=== PATIENT | male | born 1965 | race Caucasian/White ===

== ENCOUNTER → 2021-08-05 11:58 | Outpatient (CLI) | payer OTHER, SELFPAY ==
--- NOTE | ~2021-08-05 | CT_ITS ---
EXAMINATION: CT abdomen pelvis wo con DATE: 08/05/2021 12:12 INDICATION: Left flank pain TECHNIQUE: Computed tomography (CT) of the abdomen and pelvis was performed without intravenous contr ast. The dose-length product (DLP) was 833.32 mGy-cm. Automated exposure control and iterative recons truction technique were employed. COMPARISON: None FINDINGS: Minimal dependent atelectasis is present in the lung bases. The heart size is normal. Suben docardial fat deposition in the interventricular septum suggests prior myocardial infarction. The jose er, pancreas, gallbladder, and adrenal glands are normal. A subtle 4 mm hypoattenuating lesion of the spleen likely represents a cyst or hemangioma. There is a 6 mm nonobstructing stone of the left kidn ey. There is a 5.3 cm cyst of the right kidney. No pathologically enlarged abdominal or pelvic lymph nodes are identified. There is no free intraperitoneal gas or evidence of bowel obstruction. Colonic diverticulosis is noted. There is diverticular inflammation of the mid descending colon. There is no evidence of abscess or perforation. There is moderate lumbar spondylosis. A fat-containing umbilical hernia is noted. IMPRESSION: 1. Uncomplicated diverticulitis of the mid descending colon. 2. Nonobstructing left nephrolithiasis. Reviewed, dictated and finalized at location B.
== END ==
PROVIDERS: PCP Internal Medicine; Visit Provider Internal Medicine
DX: N20.0 Calculus of kidney (principal); K57.32 Diverticulitis of large intestine without perforation or abscess without bleeding
CPT/HCPCS: 74176

== ENCOUNTER 2023-01-08 07:23 | Emergency (ER) | payer OTHER, SELFPAY ==
[2023-01-08] VITALS (9 sets, daily range): BP systolic 112–145; BP diastolic 75–85; PULSE 90–96; RESP 10–18; TEMP 35.7–37.3; O2SAT 96–100
--- NOTE | ~2023-01-08 | XR_ITS ---
EXAMINATION: XR retrograde pyelo w/stent LT DATE: 01/08/2023 16:27 INDICATION: Left ureteral stone. TECHNIQUE: 18 intraoperative fluoroscopic views of the abdomen and pelvis were obtained. I was not pr esent. Fluoroscopy exposure time was 92 seconds. COMPARISON: CT abdomen and pelvis 01/08/2023 FINDINGS: The left-sided retrograde pyelogram demonstrates venous intravasation of contrast in the le ft kidney. There is left hydronephrosis. The final images demonstrate a left internal ureteral stent in expected position. IMPRESSION: 1. Left internal ureteral stent in expected position. Reviewed, dictated and finalized at location A.
--- NOTE | ~2023-01-08 | CT_ITS ---
EXAMINATION: CT abdomen pelvis wo con DATE: 01/08/2023 11:05 INDICATION: Renal stone with left flank pain. TECHNIQUE: Computed tomography (CT) of the abdomen and pelvis was performed without intravenous contr ast. Automated exposure control and iterative reconstruction technique were employed. The dose-length product was 523.88 mGy-cm. COMPARISON: 08/05/2021 FINDINGS: Mild dependent atelectasis in the posterolateral left lower lobe. Heart size is normal. No pericardia l or pleural effusion. Liver, gallbladder, spleen, pancreas and bilateral adrenal glands are normal. 4.5 cm exophytic right renal cyst. Bilateral nephrolithiasis with 1-2 mm nonobstructing stone at a lo wer pole calyx of the right kidney. 6 x 6 x 3 mm obstructing stone at the left ureteropelvic junction with mild hydronephrosis and prominent left perinephric stranding. Marked diverticulosis with descen ding and sigmoid colon predominance and without adjacent from percent to suggest acute diverticulitis . Small bowel and appendix are normal. Bladder is normal. Bilateral small fat-containing inguinal her nias. No pathologically enlarged abdominal or pelvic lymphadenopathy. Mild thoracolumbar dextrocurvat ure with mild spondylosis. IMPRESSION: 1. Bilateral nephrolithiasis with obstructing 6 x 6 x 3 mm stone at the left ureteropelvic junction w ith mild left hydroureteronephrosis. 2. Extensive diverticulosis. 3. Small bilateral fat-containing inguinal hernias. Reviewed, dictated and finalized at location A. IMPRESSION: 1. Bilateral nephrolithiasis with obstructing 6 x 6 x 3 mm stone at the left ur eteropelvic junction with mild left hydroureteronephrosis. 2. Extensive diverticulosis. 3. Small bilateral fat-containing inguinal hernias.
--- NOTE | ~2023-01-08 | XR_ITS ---
XR abdomen/kub 1V DATE: 01/08/2023 16:43 INDICATION: Left ureteropelvic junction obstructing calculus, bilateral nephrolithiasis. Mild left hy droureteronephrosis TECHNIQUE: Postoperative supine AP portable views on 01/08/2023 1638 and 1639 hours COMPARISON: 01/08/2023 left retrograde pyelogram FINDINGS: A left internal urinary stent is noted, with the distal pigtail overlying the left lateral aspect of the urinary bladder, the proximal pigtail overlying the mid to upper left kidney. IMPRESSION: Left internal urinary stent placement Reviewed, dictated and finalized at Location A. Reviewed, dictated and finalized at location A.
--- NOTE | 2023-01-08 08:06 | ED.GENADULT ---
HPI - General Adult General Chief complaint: Abdominal Pain Stated complaint: left flank pain Time Seen by Provider: 01/08/23 07:29 History of Present Illness HPI narrative: 57-year-old male with prior history of kidney stones presenting the emergency department for evaluation of left-sided flank pain that started this morning approximately 5 AM. Patient is unaware of any associate hematuria. Patient states the pain starts in his flank and radiates around to his left lower quadrant. Patient does have associated nausea and vomiting. Upon arrival to the emergency department patient does look distressed secondary to his flank pain. Patient denies any associated chest pain or shortness of breath or associated fevers Related Data Home Medications Medication Instructions Recorded Confirmed aspirin 81 mg capsule 81 mg PO DAILY 01/08/23 01/08/23 loratadine 10 mg tablet (Claritin) 10 mg PO DAILY 01/08/23 01/08/23 sennosides 25 mg tablet 25 mg PO DAILY PRN Constipation 01/08/23 01/08/23 vitamin B complex 1 tablet PO DAILY 01/08/23 01/08/23 Allergies Allergy/AdvReac Type Severity Reaction Status Date / Time prochlorperazine AdvReac Agitated Verified 01/08/23 07:34 [From Compazine] Review of Systems Review of Systems: All systems reviewed & are unremarkable except as noted in HPI and below Exam Narrative: APPEARANCE: Patient distress secondary to nausea vomiting and flank pain HEAD: normocephalic, atraumatic. EYES: PERRLA/EOMI, conjunctivae clear. NOSE: Normal no drainage NECK: Supple. No adenopathy, no masses. RESPIRATORY: Airway patent, respirations nonlabored. Clear to auscultation bilaterally, no rales, rhonchi, wheezing. CARDIOVASCULAR: Regular rate and rhythm without murmurs rubs or gallops. ABDOMINAL: Left CVA tenderness to palpation MUSCULOSKELETAL: Moves all extremities. Strength/ROM intact, No edema, No calf tenderness. NEURO: Alert. Cranial nerves II through XII intact. Grossly intact SKIN: Warm, dry. Normal Color Course Course Emergency Course: 57-year-old male presenting with left flank pain. UA is pending at this time. Patient was ordered pain medications for nausea and for pain control. IV Dilaudid, IV saline and IV Zofran were ordered. Patient and family were updated on the plan for symptomatic treatment and work-up. Patient is afebrile with no leukocytosis. Patient's CMP is within normal limits including a normal creatinine. UA does show evidence of hematuria but no evidence of underlying infection. 12:59 PM I discussed case with Dr. Thomas and patient will be taken for a potential stent. Patient and family were updated with the plan. At this time patient states his pain is controlled and he is resting comfortably. Vital Signs Vital signs: Vital Signs Pulse Rate 90 01/08/23 07:28 Respiratory Rate 17 01/08/23 07:28 Blood Pressure 145/83 H 01/08/23 07:28 Pulse Oximetry 100 01/08/23 07:28 Oxygen Delivery Room Air 01/08/23 07:28 Temperature 99.2 F 01/08/23 16:30 Pulse Rate 93 01/08/23 17:50 Respiratory Rate 14 01/08/23 17:50 Blood Pressure 132/77 01/08/23 17:50 Pulse Oximetry 100 01/08/23 17:14 Oxygen Delivery Room Air 01/08/23 17:14 Oxygen Flow Rate 8 01/08/23 17:00 Medical Decision Making Vital Signs Vital Signs: Vital Signs Pulse Rate 90 01/08/23 07:28 Respiratory Rate 17 01/08/23 07:28 Blood Pressure 145/83 H 01/08/23 07:28 Pulse Oximetry 100 01/08/23 07:28 Oxygen Delivery Room Air 01/08/23 07:28 Temperature 99.2 F 01/08/23 16:30 Pulse Rate 93 01/08/23 17:50 Respiratory Rate 14 01/08/23 17:50 Blood Pressure 132/77 01/08/23 17:50 Pulse Oximetry 100 01/08/23 17:14 Oxygen Delivery Room Air 01/08/23 17:14 Oxygen Flow Rate 8 01/08/23 17:00 Lab Data Lab results reviewed: Yes I reviewed the patient's lab results. 01/08/23 07:41 Labs: Lab Results 01/08/23 01/08/23 01/08/23 Ran
[2023-01-08 08:11] LABS: Basophils Absolute Auto 0.1 K/mm3 (0.0-0.1); Basophils Percent Auto 0.7 % (0.2-1.2); Eosinophils Absolute Auto 0.1 K/mm3 (0-0.3); Eosinophils Percent Auto 1.4 % (0-4.4); Hematocrit 46.5 % (42.0-52.0); Immature Granulocyte Absolute 0.03 K/mm3 (0.00-0.031); Immature Granulocyte Percent A 0.3 % (0-0.5); Lymphocytes Absolute Auto 1.62 K/mm3 (0.9-3.2); Lymphocytes Percent Auto 18.4 % (18.3-44.2); Mean Corpuscular HGB Conc 34.4 g/dl (32-36); Mean Corpuscular Hemoglobin 29.3 pg (26-34); Mean Platelet Volume 10.1 fl (7.4-10.4); Monocytes Absolute Auto 0.8 K/mm3 (0.1-0.6); Monocytes Percent Auto 9.1 % (2.6-8.5); Neutrophils Absolute Auto 6.2 K/mm3 (1.3-6.7); Neutrophils Percent Auto 70.1 % (45.5-73.1); Platelet Count Result 188 k/mm3 (150-375); Red Blood Count 5.47 M/mm3 (4.6-6.20); Red Cell Distribution Width 13.2 % (11.5-14.5); White Blood Count 8.8 K/mm3 (4.5-10.0)
[2023-01-08] MEDS: HYDROmorphone HCL INJ (*CRX) 1 MG/ML SYR IV PUSH ×2 (08:16→10:12)
[2023-01-08] MEDS: ONDANSETRON INJ 4 MG/2 ML VIAL IV PUSH (08:16)
[2023-01-08 08:18] LABS: Alanine Aminotransferase 42 U/L (6-50); Albumin Level 4.6 g/dL (3.5-5.1); Alkaline Phosphatase 57 U/L (38-126); Anion Gap 11 mmol/L (8-16); Aspartate Amino Transferase 47 U/L (17-59); Bilirubin,Total 0.9 mg/dL (0.2-1.3); Blood Urea Nitrogen 20 mg/dL (9-20); Calcium 9.1 mg/dL (8.4-10.2); Carbon Dioxide 23 mmol/L (22-30); Chloride 104 mmol/L (98-107); Estimated CRCL calculation 66 ml/min; Estimated Glomerular Filt Rate > 60; Glucose 149 mg/dL (65-110); Potassium 3.3 mmol/L (3.4-5.0); Sodium 138 mmol/L (137-145)
[2023-01-08] MEDS: SODIUM CHLORIDE 0.9% IV 1,000 ML 999 ML IV CONT (09:02)
[2023-01-08 10:30] LABS: Appearance Urine Cloudy (Clear); Bacteria Urine None Seen /hpf; Bilirubin Urine Negative (Negative); Blood Urine 3+ (Negative); Color Urine Dark Yellow (Yellow); Glucose Urine UA Negative (Negative); Ketones Urine 1+ mg/dL (Negative); Leukocyte Esterase Ur Trace LEU/UL (Negative); Nitrate Urine Negative (Negative); Non Pathogenic Casts 0-2; Protein Urine 1+ mg/dL (Negative); RBC Urine >100 /hpf (0-2); Specific Grav Ur 1.028 (1.001-1.035); Squamous Epithelial Cell Urine None seen /hpf (Few); WBC Urine 0-5 /hpf; pH Urine 5.5 (5.0-9.0)
[2023-01-08 10:42] LABS: Add Urine Microscopic? YES
--- NOTE | 2023-01-08 13:51 | P.HP_ITS ---
History of Present Illness History of Present Illness Consent: Risks, benefits, and alternatives have been discussed and questions answered. Patient agrees to proceed with procedure. Chief complaint: left flank pain Narrative: Omer Ely is a 57 year old male was seen in our practice several years ago after he had spontaneously passed ureteral calculus. He has not seen since until this afternoon when he presented to the ED with acute severe left flank p ain. Associated with nausea vomiting but he denied fevers chills or gross hematuria. CT imaging demonstrates an obstructing 6 mm left proximal ureteral stone. Additionally, he has a very small nonobstructing right renal calculus. Pain was difficult control emergency department. After discussion of options we elected to place a left ureteral stent today as an outpatient. Thereafter we can plan left ESWL. He is aware that definitive care will involve additional procedures with ESWL. He is aware the risk of stent placement including, but not limited to, postoperative stent irritation within ureteral voiding pattern, hematuria, urinary tract infection. Review of Systems Cardiovascular: Cardiovascular: Denies chest pain, Denies lightheadedness, Denies palpitations and Denies dyspnea Respiratory: Respiratory: Denies dyspnea Gastrointestinal: Gastrointestinal: Denies diarrhea, Denies nausea and Denies vomiting Genitourinary: Genitourinary: Denies hematuria and Denies dysuria Endocrine: Endocrine: Denies palpitations Meds Home Medications and Allergies Allergies Allergy/AdvReac Type Severity Reaction Status Date / Time prochlorperazine AdvReac Agitated Verified 01/08/23 07:34 [From Compazine] Vital Signs Vital Signs - 24 hr 01/08/23 07:28 01/08/23 07:37 Temperature 96.3 F L Pulse Rate 90 Respiratory Rate 17 Blood Pressure 145/83 H Pulse Oximetry 100 Oxygen Delivery Room Air Exam Const: General: no acute distress Resp: Effort & Inspection: normal respiratory effort GI: Inspection: non-distended GI Palp: No abdominal tenderness and No Guarding due to palpation present (GI) Auscultation: normal bowel sounds Assessment and Plan Assessment and plan (1) Calculi, ureter: Code(s): N20.1 - Calculus of ureter Status: Acute Assessment and Plan: 1. Cystoscopy, left ureteral stent placement today 2. Left ESWL in the future.
--- NOTE | 2023-01-08 13:55 | WPDHPUPDATE1 ---
History and Physical Update Update Date/Time: 01/08/23 13:55 History and Physical has been reviewed, including an updated exam of the patient. There are NO changes in the patient's condition. Risks, benefits, and alternatives have been discussed and questions answered. Patient agrees to proceed with procedure.
[2023-01-08] MEDS: LACTATED RINGERS 1,000 ML 30 ML IV CONT (15:00)
--- NOTE | 2023-01-08 15:06 | WPDANESEPPF ---
Anes - Initial Pre Proc Eval Procedure: Operation Date: 01/08/23 16:00 Proposed Procedures p Cystoscopy, Left Stent Placement - Aurelio Thomas MD Date/Time: 01/08/23 15:06 Pre Op Diagnosis: left flank pain Patient Data Age: 57 Gender: M Height: 1.7 m Weight: 79.3 kg Last Vital Signs Temp 35.7 C L 01/08/23 07:37 Pulse 90 01/08/23 07:28 Resp 17 01/08/23 07:28 BP 145/83 H 01/08/23 07:28 Pulse Ox 100 01/08/23 07:28 O2 Del Method Room Air 01/08/23 07:28 Allergies Allergy/AdvReac Type Severity Reaction Status Date / Time prochlorperazine AdvReac Agitated Verified 01/08/23 07:34 [From Compazine] Home Medications Medication Instructions Recorded Confirmed Type aspirin 81 mg capsule 81 mg PO DAILY 01/08/23 01/08/23 History loratadine 10 mg tablet (Claritin) 10 mg PO DAILY 01/08/23 01/08/23 History sennosides 25 mg tablet 25 mg PO DAILY PRN Constipation 01/08/23 01/08/23 History vitamin B complex 1 tablet PO DAILY 01/08/23 01/08/23 History Laboratory Tests 01/08/23 01/08/23 01/08/23 07:41 07:41 10:14 WBC 8.8 K/mm3 K/mm3 (4.5-10.0) RBC 5.47 M/mm3 M/mm3 (4.6-6.20) Hgb 16.0 g/dL g/dL (14.0-18.0) Hct 46.5 % % (42.0-52.0) MCV 85.0 fl fl (80-100) MCH 29.3 pg pg (26-34) MCHC 34.4 g/dl g/dl (32-36) RDW 13.2 % % (11.5-14.5) Plt Count 188 k/mm3 k/mm3 (150-375) MPV 10.1 fl fl (7.4-10.4) Immature Gran % (Auto) 0.3 % % (0-0.5) Neut % (Auto) 70.1 % % (45.5-73.1) Lymph % (Auto) 18.4 % % (18.3-44.2) Johnson % (Auto) 9.1 % H % (2.6-8.5) Eos % (Auto) 1.4 % % (0-4.4) Baso % (Auto) 0.7 % % (0.2-1.2) Lymph # (Auto) 1.62 K/mm3 K/mm3 (0.9-3.2) Johnson # (Auto) 0.8 K/mm3 H K/mm3 (0.1-0.6) Eos # (Auto) 0.1 K/mm3 K/mm3 (0-0.3) Baso # (Auto) 0.1 K/mm3 K/mm3 (0.0-0.1) Abs Immat Gran (auto) 0.03 K/mm3 K/mm3 (0.00-0.031) Absolute Neuts (auto) 6.2 K/mm3 K/mm3 (1.3-6.7) Absolute Nucleated RBC 0.0 K/mm3 K/mm3 (0.0-0.012) Nucleated RBC % 0.0 % % (0.0-0.2) Sodium 138 mmol/L mmol/L (137-145) Potassium 3.3 mmol/L L mmol/L (3.4-5.0) Chloride 104 mmol/L mmol/L (98-107) Carbon Dioxide 23 mmol/L mmol/L (22-30) Anion Gap 11 mmol/L mmol/L (8-16) BUN 20 mg/dL mg/dL (9-20) Creatinine 1.00 mg/dL mg/dL (0.7-1.3) Estim Creat Clear Calc 66 ml/min ml/min Estimated GFR > 60 (59 - ) Glucose 149 mg/dL H mg/dL (65-110) Calcium 9.1 mg/dL mg/dL (8.4-10.2) Total Bilirubin 0.9 mg/dL mg/dL (0.2-1.3) AST 47 U/L U/L (17-59) ALT 42 U/L U/L (6-50) Alkaline Phosphatase 57 U/L U/L (38-126) Total Protein 8.0 g/dL g/dL (6.3-8.2) Albumin 4.6 g/dL g/dL (3.5-5.1) Urine Color Dark yellow (Yellow) Urine Appearance Cloudy H (Clear) Urine pH 5.5 (5.0-9.0) Ur Specific [place] 1.028 (1.001-1.035) Urine Protein 1+ mg/dL H mg/dL (Negative) Urine Glucose (UA) Negative mg/dL mg/dL (Negative) Urine Ketones 1+ mg/dL H mg/dL (Negative) Ur Blood (Man) 3+ H (Negative) Urine Nitrate Negative (Negative) Urine Bilirubin Negative (Negative) Urine Urobilinogen 1.0 mg/dL mg/dL (<2.0) Leukocyte Esterase Rfl Trace ELIGIO/UL H ELIGIO/UL (Negative) Urine RBC >100 /hpf H /hpf (0-2) Urine WBC 0-5 /hpf /hpf Ur Squamous Epith Cells None seen /hpf /hpf (Few) Urine Bacteria None seen /hpf /hpf Urine Casts 0-2 Patient hx anesthesia problems: none Family hx anesthesia problems: none Results Review
--- NOTE | 2023-01-08 16:33 | W.PM.PROC2 ---
Procedure Note - Detailed Date of Procedure 01/08/23 Pre-op Diagnosis Left ureteral stone Post-op Diagnosis Same Procedure Performed Cystoscopy, left retrograde pyelography, left ureteral stent placement Surgeon Aurelio Thomas MD Anesthesia MAC Description of Procedure patient is brought to the operative suite was prepped draped in routine sterile fashion while in dorsal lithotomy position. Cystoscopy is undertaken with a 19 F rigid cystoscope. There was no urethral strictures and minimal lateral lobe hyperplasia of the prostate. Bladder mucosa was without hyperemia. There was no intravesical foreign body or neoplasm. He has a single orthotopic ureteral orifice bilaterally. There was a small left periureteral diverticulum. 0.035 in glidewire was advanced into his left renal pelvis. His stone is visible under fluoroscopy suggesting that it is calcified. I did pass a angiographic catheter over the wire and performed a left retrograde pyelogram to ensure appropriate positioning of the stent. A 4.8 F variable length stent was positioned with the proximal coil in the renal pelvis and distal coil in the bladder. Scopes and wires removed the patient was taken recovery room good condition. Drains Yes Packing No Pathology Yes Complications No immediate complications Condition Stable
[2023-01-08] MEDS: KETOROLAC 30 MG/ML VIAL (*BKC) IV PUSH (16:37)
== END 2023-01-08 18:23 | disposition home or self-care (01) ==
PROVIDERS: Urology; Emergency Provider Emergency Medicine; PCP Internal Medicine
PROC: (CPT 52352; principal; 2023-01-08 16:00)
DX: N13.2 Hydronephrosis with renal and ureteral calculous obstruction (principal)
CPT/HCPCS: 36415; 74018; 74176; 74420; 80053; 81001; 85025; 96361; 96374; 96375; 96376; 99284; C1758; C1769; C2617; J1170; J1885; J2250; J2405; J2704; J7030; J7120

== ENCOUNTER 2023-01-11 10:50 | Outpatient (CLI) | payer OTHER, SELFPAY ==
[2023-01-11 12:20] LABS: INR 1.1; Partial Thromboplastin Time 26.6 SECONDS (22.3-36.8); Prothrombin Time 13.8 Seconds (11.1-14.7)
== END 2023-01-11 10:51 | disposition home or self-care (01) ==
LOC: ANHSURGERY 10:55
PROVIDERS: PCP Internal Medicine; Visit Provider Urology
DX: N20.1 Calculus of ureter (principal); Z01.818 Encounter for other preprocedural examination
CPT/HCPCS: 36415; 85610; 85730; 87086

== ENCOUNTER 2023-01-15 01:49 | Day surgery (SDC) | payer OTHER, SELFPAY ==
[2023-01-11 09:31] VITALS: BMI 27.3
--- NOTE | 2023-01-11 09:35 | PC.NURSE ---
Report to the Outpatient Waiting Room, entrance under the green pavilion located off [facility], at time 6:00 on date 01/15/23. Planned Procedure Time: 7:30. Time changes happen often and if your time is changed the preop area will call you the afternoon before. - You and your visitor will be asked to self-screen and do not enter if you have any COVID symptoms. - A mask is optional within the hospital at this time. Patients may have clear liquids (water, carbonated beverages, clear teas, apple juice) until 3 hours prior to surgery with a maximum of 20 ounces. - No food from midnight until time of surgery Take the following medications with a SIP of water the morning of surgery: PAIN PILL IF NEEDED DO NOT STOP ANY OF YOUR OTHER PRESCRIPTION MEDICATIONS PRIOR TO SURGERY?EXCEPT THE FOLLOWING Medications to discontinue per physician: VITAMINS Date to take last dose: 01/11/23 PT ALREADY HOLDING ASPIRIN Please no make-up, nail burkinan, hairspray, perfume, deodorant, or body powder the day of surgery. No jewelry (including any body piercings) or valuables the day of surgery, leave them at home. Please take a shower or bath the night before, or the morning of, surgery with an antibacterial soap. Wear comfortable, loose fitting clothing. - Jewelry must be removed prior to entering the operating room. Rings and piercings that are not removed may be cut off. - The hospital will not accept responsibility for valuables. - Please leave all valuables, including medications, at home the day of surgery. If you are going home after surgery, a licensed motorcoach driver must drive you home. - NO public transportation without another adult if you receive anesthesia. - We recommend that an adult stay with you for 24 hours following discharge. - We also recommend that you do not drive, make important decision, drink alcoholic beverages, or take any drugs that were not prescribed by your health care provider for at least 24 hours after your discharge time. Follow any additional instructions given to you from your surgeon. If you or anyone in your household have experienced Covid symptoms in the past week, please notify your surgeon or the nurse liaison at the phone number below for possible testing. Telephone instructions given to PT - TAYO PUENTE and asked if any additional questions and then verbalized understanding. Patient advised to call surgeon office or pre surgery nurse liaison [phone] if any additional questions.
--- NOTE | 2023-01-14 14:34 | P.PNAN_ITS ---
Anes - Initial Pre Proc Eval Procedure: Operation Date: 01/15/23 07:30 Proposed Procedures p Left Extracorporeal Shock Wave Lithotripsy - Alejo Joseph MD s Cystoscopy, Left Stent Removal - Alejo Joseph MD Date/Time: 01/14/23 14:34 Surgeon: Alejo Joseph MD Pre Op Diagnosis: Left ureteral stone Patient Data Age: 57 Gender: M Height: 1.7 m Weight: 79.4 kg Allergies Allergy/AdvReac Type Severity Reaction Status Date / Time prochlorperazine AdvReac Agitated Verified 01/15/23 06:52 [From Compazine] Home Medications Medication Instructions Recorded Confirmed Type aspirin 81 mg capsule 81 mg PO DAILY 01/08/23 01/11/23 History hydrocodone 5 mg-acetaminophen 325 1 - 2 tablet PO Q6H PRN pain #30 01/08/23 01/11/23 Rx mg tablet tabs loratadine 10 mg tablet (Claritin) 10 mg PO DAILY 01/08/23 01/11/23 History sennosides 25 mg tablet 25 mg PO DAILY PRN Constipation 01/08/23 01/11/23 History vitamin B complex 1 tablet PO DAILY 01/08/23 01/11/23 History Patient hx anesthesia problems: none Family hx anesthesia problems: none Results Review: All pre-operative results and documents have been reviewed as part of the pre- operative evaluation. [facility] Social History Social History Smoking status: Never smoker Alcohol intake: never Substance use: never Substance use type: does not use Living arrangements: with family Spiritual care concerns: No Anes - Eval Final PreProcedure Day of Procedure 01/14/23 14:34 Patient weight: overweight Heart: regular rate and rhythm Lungs: clear to auscultation Airway: Mallampati scale class II Neurological: alert and oriented Last oral intake: >/= 8 hours ASA classification: II Emergent: no Anesthetic plan: proceed Anesthesia type and monitoring: general LMA and standard monitoring Results Review: All pre-operative results and documents have been reviewed as part of the pre- operative evaluation. Informed Consent: The patient's anesthetic plan and its attendant risks and benefits were discussed with the patient/family/POA. Questions were solicited and answers provided to the satisfaction of the patient/family/POA.
[2023-01-15] VITALS (7 sets, daily range): BP systolic 116–157; BP diastolic 73–92; PULSE 66–85; RESP 14–20; TEMP 36.2–36.9; O2SAT 96–100
--- NOTE | ~2023-01-15 | XR_ITS ---
Supine and upright views of the abdomen Clinical history: Lithotripsy COMPARISON: 01/08/2023 Findings: Bowel gas pattern is nonspecific. No evidence for obstruction or free air. Left ureteral st ent remains in place. 8 mm stone present at the proximal to mid left ureter along the course of the s tent. Osseous structures are intact. Impression: 8 mm stone at the proximal to mid left ureter along the course of the left ureteral stent. Reviewed, dictated and finalized at location M. Impression: 8 mm stone at the proximal to mid left ureter along the course of the left uret eral stent.
[2023-01-15] MEDS: LACTATED RINGERS 1,000 ML 30 ML IV CONT (06:52)
--- NOTE | 2023-01-15 07:11 | WPDHPUPDATE1 ---
History and Physical Update Update Date/Time: 01/15/23 07:11 History and Physical has been reviewed, including an updated exam of the patient. There are NO changes in the patient's condition. Risks, benefits, and alternatives have been discussed and questions answered. Patient agrees to proceed with procedure. Proceed with eswl of left ureteral calculus
[2023-01-15] MEDS: ceFAZolin 2 GM/D5W 50 ML 2 GM/50 ML BAG IVPB (07:27)
--- NOTE | 2023-01-15 07:58 | W.PM.PROC2 ---
Procedure Note - Detailed Date of Procedure 01/15/23 Pre-op Diagnosis Left ureteral stone Post-op Diagnosis Same Procedure Performed Lithotripsy of left ureteral calculus Surgeon Alejo Joseph MD Anesthesia General Description of Procedure Patient is taken to the operative suite correctly identified. Once anesthesia was obtained the stone was localized in both planes. Three thousand shocks were given the stone. There appeared to be fairly good fragmentation. Given the size of the stone we decided to retain the stent and re-evaluate next week. Patient was taken recovery stable condition. Please send a copy of op note to my office. Drains Yes Packing No Pathology None sent Complications No immediate complications Condition Stable Disposition PACU
== END 2023-01-15 09:50 | disposition home or self-care (01) ==
PROVIDERS: PCP Internal Medicine; Visit Provider Urology
PROC: (CPT 50590; principal; 2023-01-15 07:30)
DX: N20.1 Calculus of ureter (principal)
CPT/HCPCS: 50590; 36415; 74018; 85610; 85730; 87086; J0690; J1100; J2250; J2405; J2704; J3010; J7030; J7120

== ENCOUNTER 2023-01-21 09:37 | Outpatient (CLI) | payer OTHER, SELFPAY ==
--- NOTE | ~2023-01-21 | XR_ITS ---
EXAMINATION: XR abdomen/kub 1V INDICATION: Left-sided kidney stone TECHNIQUE: Supine views of the abdomen were obtained on 2 radiographs. COMPARISON: 01/15/2023 FINDINGS: A right internal ureteral stent is in expected position. There is a 3 mm stone adjacent to the proximal aspect of the stent at the level of the left L4 transverse process which previously miriam ured 8 mm. No additional urolithiasis is identified. Phleboliths are noted in the left pelvis. The samir wel gas pattern is normal. IMPRESSION: 1. Right internal ureteral stent in expected position with interval decrease in size of the stone adj acent to the stent, consistent with interval lithotripsy. Reviewed, dictated and finalized at location A. IMPRESSION: 1. Right internal ureteral stent in expected position with interval decrease in size of the stone adjacent to the stent, consistent with interval lithotripsy.
== END 2023-01-21 09:38 | disposition home or self-care (01) ==
LOC: ANHIMG 09:38
PROVIDERS: PCP Internal Medicine; Visit Provider Nurse Practitioner Adult Health
DX: N20.0 Calculus of kidney (principal)
CPT/HCPCS: 74018

== ENCOUNTER 2023-01-27 07:42 | Outpatient (CLI) | payer OTHER, SELFPAY ==
--- NOTE | ~2023-01-27 | XR_ITS ---
EXAMINATION: XR abdomen/kub 1V INDICATION: Left-sided kidney stone TECHNIQUE: Supine views of the abdomen were obtained on 2 radiographs. COMPARISON: 01/21/2023 FINDINGS: A left internal ureteral stent is in expected position. A 3 mm stone is adjacent to the pro ximal stent just above the left L4 transverse process. Phleboliths are noted in the pelvis. No additi onal urolithiasis is identified. The visualized lung bases are clear. The bowel gas pattern is normal . IMPRESSION: 1. Left internal ureteral stent in expected position with 3 mm stone adjacent to the proximal stent. Reviewed, dictated and finalized at location B. IMPRESSION: 1. Left internal ureteral stent in expected position with 3 mm stone adjacent t o the proximal stent.
== END 2023-01-27 07:43 | disposition home or self-care (01) ==
LOC: ANHIMG 07:44
PROVIDERS: PCP Internal Medicine; Visit Provider Urology
DX: N20.0 Calculus of kidney (principal)
CPT/HCPCS: 74018

== ENCOUNTER 2023-01-29 02:01 | Day surgery (SDC) | payer OTHER, SELFPAY ==
--- NOTE | 2023-01-27 09:33 | PC.NURSE ---
Report to the Outpatient Waiting Room, entrance under the green pavilion located off [facility], at time 1030 on date 01/29/23. Planned Procedure Time: 1230. Time changes happen often and if your time is changed the preop area will call you the afternoon before. - You and your visitor will be asked to self-screen and do not enter if you have any COVID symptoms. - A mask is optional within the hospital at this time. Patients may have clear liquids (water, carbonated beverages, clear teas, apple juice) until 3 hours prior to surgery with a maximum of 20 ounces. - No food from midnight until time of surgery Take the following medications with a SIP of water the morning of surgery: PAIN PILL IF NEEDED DO NOT STOP ANY OF YOUR OTHER PRESCRIPTION MEDICATIONS PRIOR TO SURGERY EXCEPT THE FOLLOWING Medications to discontinue per physician: VITAMINS Date to take last dose: NO MORE UNTIL AFTER SURGERY PT ALREADY HOLDING ASPIRIN Please no make-up, nail armenian, hairspray, perfume, deodorant, or body powder the day of surgery. No jewelry (including any body piercings) or valuables the day of surgery, leave them at home. Please take a shower or bath the night before, or the morning of, surgery with an antibacterial soap. Wear comfortable, loose fitting clothing. - Jewelry must be removed prior to entering the operating room. Rings and piercings that are not removed may be cut off. - The hospital will not accept responsibility for valuables. - Please leave all valuables, including medications, at home the day of surgery. If you are going home after surgery, a licensed feeder driver must drive you home. - NO public transportation without another adult if you receive anesthesia. - We recommend that an adult stay with you for 24 hours following discharge. - We also recommend that you do not drive, make important decision, drink alcoholic beverages, or take any drugs that were not prescribed by your health care provider for at least 24 hours after your discharge time. Follow any additional instructions given to you from your surgeon. If you or anyone in your household have experienced Covid symptoms in the past week, please notify your surgeon or the nurse liaison at the phone number below for possible testing. Telephone instructions given to PT - TAYO PUENTE and asked if any additional questions and then verbalized understanding. Patient advised to call surgeon office or pre surgery nurse liaison [phone] if any additional questions.
[2023-01-27 09:35] VITALS: BMI 26.6
--- NOTE | ~2023-01-29 | XR_ITS ---
EXAMINATION: XR retrograde pyelo w/stent LT INDICATION: Left ureteral stone TECHNIQUE: 17 intraoperative fluoroscopic images are submitted for review. Total fluoroscopic time wa s 15.8 seconds. COMPARISON: KUB, 01/27/2023 FINDINGS: Initial images demonstrate a right internal ureteral stent in expected position. Subsequent images demonstrate manipulation in the left ureter and renal pelvis. Final images demonstrate normal left nephrogram and placement of a left internal ureteral stent in expected position. IMPRESSION: 1. Please refer to procedure note for full details. Reviewed, dictated and finalized at location B.
[2023-01-29 11:01] VITALS: BP 128/82; PULSE 91; RESP 18; TEMP 36.3; O2SAT 98
[2023-01-29] MEDS: LACTATED RINGERS 1,000 ML 30 ML IV CONT ×2 (11:14→13:29)
--- NOTE | 2023-01-29 11:24 | WPDHPUPDATE1 ---
History and Physical Update Update Date/Time: 01/29/23 11:24 History and Physical has been reviewed, including an updated exam of the patient. There are NO changes in the patient's condition. Risks, benefits, and alternatives have been discussed and questions answered. Patient agrees to proceed with procedure. Proceed with cysto, left retrograde, left ureteroscopy with stone extraction, possible laser, stent exchange
--- NOTE | 2023-01-29 12:35 | WPDANESEPPF ---
Anes - Initial Pre Proc Eval Procedure: Operation Date: 01/29/23 13:00 Proposed Procedures p Cystoscopy, Left Ureteroscopy, Possible Left Retrograde Pyelogram, Possible Left Stone Extraction, Left Stent Exchange, Possible Holmium Laser - Alejo Joseph MD Date/Time: 01/29/23 12:35 Surgeon: Alejo Joseph MD Pre Op Diagnosis: left ureteral calculus Patient Data Age: 58 Gender: M Height: 1.7 m Weight: 74.4 kg Last Vital Signs Temp 36.3 C L 01/29/23 11:01 Pulse 91 01/29/23 11:01 Resp 18 01/29/23 11:01 BP 128/82 01/29/23 11:01 Pulse Ox 98 01/29/23 11:01 O2 Del Method Room Air 01/29/23 11:01 Allergies Allergy/AdvReac Type Severity Reaction Status Date / Time prochlorperazine AdvReac Agitated Verified 01/29/23 11:06 [From Compazine] Home Medications Medication Instructions Recorded Confirmed Type aspirin 81 mg capsule 81 mg PO DAILY 01/08/23 01/29/23 History hydrocodone 5 mg-acetaminophen 325 1 - 2 tablet PO Q6H PRN pain #30 01/08/23 01/29/23 Rx mg tablet tabs loratadine 10 mg tablet (Claritin) 10 mg PO DAILY 01/08/23 01/29/23 History sennosides 25 mg tablet 25 mg PO DAILY PRN Constipation 01/08/23 01/29/23 History vitamin B complex 1 tablet PO DAILY 01/08/23 01/29/23 History Patient hx anesthesia problems: none Family hx anesthesia problems: none Results Review: All pre-operative results and documents have been reviewed as part of the pre-operative evaluation. [facility] Social History Social History Smoking status: Never smoker Alcohol intake: never Substance use: never Substance use type: does not use Living arrangements: with family Spiritual care concerns: No Anes - Eval Final PreProcedure Day of Procedure 01/29/23 12:35 Patient weight: overweight Heart: regular rate and rhythm Lungs: clear to auscultation Airway: Mallampati scale class II Neurological: alert and oriented Last oral intake: >/= 8 hours ASA classification: II Emergent: no Anesthetic plan: proceed Anesthesia type and monitoring: general LMA and standard monitoring Results Review: All pre-operative results and documents have been reviewed as part of the pre-operative evaluation. Informed Consent: The patient's anesthetic plan and its attendant risks and benefits were discussed with the patient/family/POA. Questions were solicited and answers provided to the satisfaction of the patient/family/POA.
[2023-01-29] MEDS: ceFAZolin 2 GM/D5W 50 ML 2 GM/50 ML BAG IVPB (12:42)
[2023-01-29] MEDS: LIDOCAINE HCL 2% GEL UROJET 10 ML PKG MUCOUS MEM (12:55)
--- NOTE | 2023-01-29 13:23 | W.PM.PROC2 ---
Procedure Note - Detailed Date of Procedure 01/29/23 Pre-op Diagnosis left ureteral calculus Post-op Diagnosis Same Procedure Performed Cystoscopy, left retrograde pyelogram, left ureteroscopy with stone extraction, left ureteral stent exchange 4.8 Palauan contour Surgeon Alejo Joseph MD Anesthesia General Description of Procedure Patient is taken to the operative suite correctly identified. Once anesthesia was obtained was placed in dorsal lithotomy position and prepped and draped usual sterile fashion. Twenty-two Palauan scope inserted into the bladder. The left ureteral stent was grasped brought out to the meatus. Guidewire was inserted through the stent. Flexible ureteral scope was then placed and the stones which had been fragmented were visualized. There was somewhat impacted. We then placed a ureteral access sheath in and retrieved the stones. This was done using an escape basket. We then did a pyelogram and replaced the stent using a 4.8 Palauan contour stent. Bladder was drained. 2% viscous lidocaine was inserted into the urethra patient is taken recovery stable condition. He will follow-up in a week's time for stent removal. This completes dictation. Please send a copy to my office. Estimated Blood Loss 0 Drains Yes Packing No Pathology Yes Complications No immediate complications Condition Stable Disposition PACU
[2023-01-29 13:29] VITALS: BP 140/87; PULSE 78; RESP 10; TEMP 36.8; O2SAT 100
[2023-01-29 13:40] VITALS: BP 138/87; PULSE 78; RESP 13; O2SAT 100
[2023-01-29 13:55] VITALS: BP 142/71; PULSE 75; RESP 18; O2SAT 99
[2023-01-29 14:00] VITALS: BP 137/86; PULSE 62; RESP 18
[2023-01-29 14:30] VITALS: BP 134/76; PULSE 77; RESP 18
== END 2023-01-29 14:50 | disposition home or self-care (01) ==
PROVIDERS: PCP Internal Medicine; Visit Provider Urology
PROC: (CPT 52352; principal; 2023-01-29 13:00)
DX: N20.1 Calculus of ureter (principal)
CPT/HCPCS: 52332; 52352; 74420; 82365; 88300; C1769; C1894; C2617; J0690; J1100; J2250; J2405; J2704; J3010; J7120

== ENCOUNTER 2023-07-22 08:05 | Day surgery (SDC) | payer OTHER, SELFPAY ==
[2023-07-16 13:57] VITALS: BMI 26.6
--- NOTE | 2023-07-21 15:37 | P.HP_ITS ---
History of Present Illness History of Present Illness Consent: Risks, benefits, and alternatives have been discussed and questions answered. Patient agrees to proceed with procedure. Chief complaint: Diverticulitis w/o perforation,abscess or bleeding Narrative: Omer Ely is a 58 year old male referred for Colonoscopy due to recent diverticulitis. He had an attack of sigmoid diverticulitis in April. CT scan showed thickening in the distal descending and proximal sigmoid colon. Review of Systems Review of Systems: All systems reviewed & are unremarkable except as noted in HPI and below [facility] Social History Social History Smoking status: Never smoker Alcohol intake: never Substance use: never Substance use type: does not use Living arrangements: with family Spiritual care concerns: No Meds Home Medications and Allergies Home Medications Medication Instructions Recorded Confirmed Type aspirin 81 mg capsule 81 mg PO DAILY 01/08/23 07/22/23 History loratadine 10 mg tablet (Claritin) 10 mg PO DAILY 01/08/23 07/22/23 History sennosides 25 mg tablet 25 mg PO DAILY PRN Constipation 01/08/23 07/22/23 History vitamin B complex 1 tablet PO DAILY 01/08/23 07/22/23 History omega-3 fatty acids 150 mg-fish 1 cap PO DAILY 07/16/23 07/22/23 History oil 400 mg capsule (Fish Oil Pearls) Allergies Allergy/AdvReac Type Severity Reaction Status Date / Time prochlorperazine AdvReac Agitated Verified 07/16/23 13:56 [From Compazine] Exam Resp: Auscultation: clear to auscultation bilaterally Cardio: Rate: regular rate Rhythm: regular rhythm GI: GI Palp: Yes Soft to palpation and No Tenderness to palpation present (GI) Assessment and Plan Assessment and plan (1) Abnormal CT scan, gastrointestinal tract: Code(s): R93.3 - Abnormal findings on diagnostic imaging of other parts of digestive tract Status: Acute Assessment and Plan: Colonoscopy with possible biopsy or polypectomy or cautery or injection of substances.
[2023-07-22 09:53] VITALS: BP 135/91; PULSE 80; RESP 20; TEMP 36.9; O2SAT 99
[2023-07-22] MEDS: LACTATED RINGERS 1,000 ML 150 ML IV CONT (10:09)
[2023-07-22 11:32] VITALS: BP 103/52; PULSE 77; RESP 14; O2SAT 96
--- NOTE | 2023-07-22 11:35 | WPDANESEPPF ---
Anes - Initial Pre Proc Eval Procedure: Operation Date: 07/22/23 11:00 Proposed Procedures p Colonoscopy - Jon Galindo MD Date/Time: 07/22/23 11:35 Surgeon: Jon Galindo MD Pre Op Diagnosis: Diverticulitis w/o perforation,abscess or bleeding Patient Data Age: 58 Gender: M Height: 1.7 m Weight: 78.1 kg Last Vital Signs Temp 36.9 C 07/22/23 09:53 Pulse 80 07/22/23 09:53 Resp 20 07/22/23 09:53 BP 135/91 H 07/22/23 09:53 Pulse Ox 99 07/22/23 09:53 O2 Del Method Room Air 07/22/23 09:53 Allergies Allergy/AdvReac Type Severity Reaction Status Date / Time prochlorperazine AdvReac Agitated Verified 07/16/23 13:56 [From Compazine] Home Medications Medication Instructions Recorded Confirmed Type aspirin 81 mg capsule 81 mg PO DAILY 01/08/23 07/22/23 History loratadine 10 mg tablet (Claritin) 10 mg PO DAILY 01/08/23 07/22/23 History sennosides 25 mg tablet 25 mg PO DAILY PRN Constipation 01/08/23 07/22/23 History vitamin B complex 1 tablet PO DAILY 01/08/23 07/22/23 History omega-3 fatty acids 150 mg-fish 1 cap PO DAILY 07/16/23 07/22/23 History oil 400 mg capsule (Fish Oil Pearls) Patient hx anesthesia problems: none Family hx anesthesia problems: none Results Review: All pre-operative results and documents have been reviewed as part of the pre-operative evaluation. [facility] Social History Social History Smoking status: Never smoker Alcohol intake: never Substance use: never Substance use type: does not use Living arrangements: with family Spiritual care concerns: No Anes - Eval Final PreProcedure Day of Procedure 07/22/23 11:35 Patient weight: overweight Heart: regular rate and rhythm Lungs: clear to auscultation Airway: Mallampati scale class II Neurological: alert and oriented Last oral intake: >/= 8 hours ASA classification: II Emergent: no Anesthetic plan: proceed Anesthesia type and monitoring: general GIVS and standard monitoring Results Review: All pre-operative results and documents have been reviewed as part of the pre-operative evaluation. Informed Consent: The patient's anesthetic plan and its attendant risks and benefits were discussed with the patient/family/POA. Questions were solicited and answers provided to the satisfaction of the patient/family/POA.
[2023-07-22 11:42] VITALS: BP 99/70; PULSE 74; RESP 16; O2SAT 97
[2023-07-22 11:50] VITALS: BP 123/83; PULSE 73; RESP 16; O2SAT 98
[2023-07-22 11:55] VITALS: BP 125/77; PULSE 74; RESP 16; O2SAT 98
--- NOTE | 2023-07-22 12:03 | WPDANESPN ---
Anes - Prog Note Post-Op Date/Time: 07/22/23 12:03 Cardiovascular status: normal Respiratory status: normal Airway patency: baseline Mental status: baseline Post-Op hydration status: normal Vital Signs: Last Vital Signs Temp 36.9 C 07/22/23 09:53 Pulse 74 07/22/23 11:55 Resp 16 07/22/23 11:55 BP 125/77 07/22/23 11:55 Pulse Ox 98 07/22/23 11:55 O2 Del Method Room Air 07/22/23 11:55 Pain Score (VAS): 0 I/O: Intake & Output 07/21/23 07/22/23 07/22/23 23:59 07:59 15:59 Intake Total 500 Balance 500 Patient Feedback: Patient satisfied with anesthetic care.
== END 2023-07-22 12:06 | disposition home or self-care (01) ==
PROVIDERS: PCP Internal Medicine; Visit Provider Internal Medicine Gastroenterology
PROC: 0DJD8ZZ Inspection of Lower Intestinal Tract, Via Natural or Artificial Opening Endoscopic (ICD-10-PCS; CPT 45378; principal; 2023-07-22 11:00)
DX: K57.30 Diverticulosis of large intestine without perforation or abscess without bleeding (principal)
CPT/HCPCS: 45378

== ENCOUNTER 2023-10-25 13:33 | Emergency (ER) | payer OTHER, SELFPAY ==
--- NOTE | ~2023-10-25 | CT_ITS ---
EXAMINATION: CT cervical spine wo con DATE: 10/25/2023 15:33 INDICATION: Head injury. Fall on ice. TECHNIQUE: Computed tomography (CT) of the cervical spine was performed without intravenous contrast. Automated exposure control and iterative reconstruction technique were employed. The dose-length pro duct was 435.69 mGy-cm. COMPARISON: None FINDINGS: There is 4 degrees levocurvature of cervicothoracic spine. There is hypolordosis of cervica l spine. There is mild anterior wedging of T1 vertebral body, likely chronic. There is mildly decreas ed disc height at C3-C4 and severely decreased disc height at C5-C6 and C6-C7. The following disc lev els are specifically discussed: C2-C3: There is mild bilateral uncovertebral joint osteoarthritis. There is mild bilateral facet join t osteoarthritis. There is no neural foraminal stenosis. There is no central canal stenosis. C3-C4: There is mild bilateral uncovertebral joint osteoarthritis. There is mild right and moderate l eft facet joint osteoarthritis. There is mild left neural foraminal stenosis. There is no central can al stenosis. C4-C5: There is no uncovertebral joint osteoarthritis. There is mild bilateral facet joint osteoarthr itis. There is no neural foraminal stenosis. There is no central canal stenosis. C5-C6: There is severe bilateral uncovertebral joint osteoarthritis. There is mild bilateral facet amanda int osteoarthritis. There is moderate bilateral neural foraminal stenosis. There is mild central chad l stenosis. C6-C7: There is severe bilateral uncovertebral joint osteoarthritis. There is moderate right and mild left facet joint osteoarthritis. There is mild bilateral neural foraminal stenosis. There is mild ce ntral canal stenosis. C7-T1: There is no uncovertebral joint osteoarthritis. There is severe right and mild left facet join t osteoarthritis. There is mild right neural foraminal stenosis. There is no central canal stenosis. IMPRESSION: 1. No acute fracture. 2. Severe cervical spondylosis. Reviewed, dictated and finalized at location E. ER DIVERSIFIED CROPS
--- NOTE | ~2023-10-25 | CT_ITS ---
EXAMINATION: CT brain wo con DATE: 10/25/2023 15:32 INDICATION: Head injury post fall on ice TECHNIQUE: Computed tomography (CT) of the head was performed without intravenous contrast. Sagittal and coronal reconstructions were performed. The mA was adjusted according to patient size. Iterative reconstruction technique was employed. The dose-length product was 605.33 mGy-cm. COMPARISON: None FINDINGS: No fracture. 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 No acute intracranial hemorr taz, acute infarction or abnormal extra axial fluid collection. Ventricles are normal and symmetric. No mass/mass effect. The orbits, paranasal sinuses and mastoid air cells are normal. IMPRESSION: 1. No fracture or acute intracranial process. Reviewed, dictated and finalized at location A. 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
[2023-10-25 13:45] VITALS: BP 140/85; PULSE 88; RESP 16; TEMP 36.7; O2SAT 98
--- NOTE | 2023-10-25 15:42 | PC.NURSE ---
Pt to ED with c/o parietal head pain after falling at 1200 today hitting head. Reports neck stiffness
--- NOTE | 2023-10-25 15:49 | ED.FALL ---
HPI - Fall General Chief Complaint: Fall Stated Complaint: fall, head injury Time Seen by Provider: 10/25/23 15:45 1550: Ayad is a 58-year-old male patient presenting to the ER today with complaints of head injury/headache. He reports he was leaving work and slipped down they icy ramp and hit the back of his head. Denies any loss of consciousness. He reports some neck stiffness and headache. CT brain and neck was performed. Rates his headache a 4 to 02/10 Source: patient Mode of arrival: ambulatory Limitations: no limitations Related Data Home Medications Medication Instructions Recorded Confirmed aspirin 81 mg capsule 81 mg PO DAILY 01/08/23 07/22/23 loratadine 10 mg tablet (Claritin) 10 mg PO DAILY 01/08/23 07/22/23 sennosides 25 mg tablet 25 mg PO DAILY PRN Constipation 01/08/23 07/22/23 vitamin B complex 1 tablet PO DAILY 01/08/23 07/22/23 omega-3 fatty acids 150 mg-fish 1 cap PO DAILY 07/16/23 07/22/23 oil 400 mg capsule (Fish Oil Pearls) Allergies Allergy/AdvReac Type Severity Reaction Status Date / Time prochlorperazine AdvReac Agitated Verified 07/16/23 13:56 [From Compazine] Review of Systems Review of Systems: Pertinent positives per HPI. Patient denies any fever, chills, rash, headache, visual changes, dizziness, cough, runny nose, sore throat, shortness of breath, chest pain, palpitations, nausea, vomiting, diarrhea, constipation, abdominal pain, or any urinary issues. [facility] Social History Social History Smoking status: Never smoker Alcohol intake: never Substance use: never Substance use type: does not use Living arrangements: with family Spiritual care concerns: No Comments At the time of my signature, I reviewed and agree with the nursing past medical, surgical, social, and family history. There is no relevant family history pertinent to the patient complaint. Exam Narrative: General: Well-developed, well nourished, in no apparent distress Head: Normocephalic, atraumatic Eyes: Pupils equally round and reactive to light bilaterally, EOM intact, sclera and conjunctive clear, no discharge, lids normal Ears: TMs intact and clear, ear canals clear, no drainage, grossly hearing normal. Nose: Nares patent, no discharge, no inflammation, no sinus tenderness. Mouth: Oropharynx without lesions or masses, good dentition, MMM. Tongue midline, even rise and fall of uvula Neck: Supple, trachea midline, no enlargement of anterior or posterior cervical nodes, no thyroid masses or goiter palpable. Cardio: Regular rate and rhythm, s1 and s2 normal, no murmur appreciated. Resp: Clear to auscultation bilaterally anteriorly and posteriorly, no rhonchi, rales, wheezing or rubs Musculoskeletal: No deformity, non-tender to palpation, grossly normal range of motion, muscle strength strong and equal, peripheral pulse strong, no edema, no cyanosis, normal gait and station Neuro: Alert and oriented x4 with normal speech, no focal deficits, cranial nerves I through XII intact, muscle strength 5 out of 5, sensation intact bilaterally, negative Romberg test Course Course Emergency Course: Portions of this record may have been created with voice recognition software. Vital Signs Vital signs: Vital Signs Temperature 36.7 C 10/25/23 13:45 Pulse Rate 88 10/25/23 13:45 Respiratory Rate 16 10/25/23 13:45 Blood Pressure 140/85 10/25/23 13:45 Pulse Oximetry 98 10/25/23 13:45 Temperature 36.7 C 10/25/23 13:45 Pulse Rate 88 10/25/23 13:45 Respiratory Rate 16 10/25/23 13:45 Blood Pressure 140/85 10/25/23 13:45 Pulse Oximetry 98 10/25/23 13:45 Vital signs reviewed MDM - Fall [facility] Narrative Medical decision making narrative: At the time of visit patient is resting comfortably on the exam table. Patient appears to be nontoxic. Diagnostics: CT of the head is negative for any acute in
[2023-10-25 16:07] VITALS: BP 136/80; PULSE 80; RESP 18; TEMP 36.7; O2SAT 98
== END 2023-10-25 16:10 | disposition home or self-care (01) ==
LOC: ANHED 16:04
PROVIDERS: Emergency Provider Nurse Practitioner Family; PCP Internal Medicine
DX: S09.90XA Unspecified injury of head, initial encounter (principal); M47.812 Spondylosis without myelopathy or radiculopathy, cervical region; W00.0XXA Fall on same level due to ice and snow, initial encounter
CPT/HCPCS: 70450; 72125; 99284

== ENCOUNTER 2024-03-23 11:43 | Outpatient (CLI) | payer OTHER, SELFPAY ==
--- NOTE | ~2024-03-23 | XR_ITS ---
XR abdomen/kub 1V Ordering provider: Alejo Joseph MD History: . KIDNEY STONE ON LT SIDE FU . Comparison: January 27, 2023 FINDINGS: BOWEL: Nonobstructive bowel gas pattern. ORGANOMEGALY: None. SIGNIFICANT PATHOLOGIC CALCIFICATIONS: None. OTHER: No free air is seen under the diaphragm. Bilateral sacroiliacs. Pseudarthrosis seen on the left side of the level of S1 with attempt of lumbar ization of S1. Bilateral facet joint disease at the level of L4-L5 and L5-S1.. IMPRESSION: NO ACUTE ABDOMINAL FINDINGS. No renal stones. Reviewed, dictated and finalized at location A.
== END 2024-03-23 11:44 | disposition home or self-care (01) ==
LOC: ANHIMG 11:51
PROVIDERS: PCP Internal Medicine; Visit Provider Urology
DX: N20.0 Calculus of kidney (principal)
CPT/HCPCS: 74018

== ENCOUNTER 2024-06-27 09:26 | Day surgery (SDC) | payer OTHER, SELFPAY ==
[2024-06-27] VITALS (12 sets, daily range): BP systolic 116–148; BP diastolic 70–82; PULSE 70–92; RESP 12–18; TEMP 36.3–37.1; O2SAT 93–100; BMI 29.3
--- NOTE | ~2024-06-27 | XR_ITS ---
EXAMINATION: XR abdomen/kub 1V DATE: 06/27/2024 11:33 INDICATION: Right ureteral stone. TECHNIQUE: A supine view of the abdomen on 2 radiographs was obtained. COMPARISON: CT abdomen and pelvis 06/27/2024 FINDINGS: There are no dilated loops of bowel. There is contrast in the renal collecting system. Ther e is mild right hydronephrosis. IMPRESSION: 1. Mild right hydronephrosis. Reviewed, dictated and finalized at location A.
--- NOTE | ~2024-06-27 | XR_ITS ---
EXAMINATION: XR retrograde pyelo w/stent RT DATE: 06/27/2024 14:59 INDICATION: Right ureteral stone TECHNIQUE: 6 fluoroscopic images of the abdomen and pelvis were obtained during procedure performed jacques Joseph. Radiologist was not present for the imaging or procedure. The amount of fluoroscopy t león used during this procedure was 0.5 minutes. Total DAP was 0.566 mGym^2 COMPARISON: CT dated 06/27/2024 FINDINGS: There is residual excreted contrast material in the bilateral renal collecting systems and in the nithin dder. There is mild right hydronephrosis extending to the proximal right ureter presumably still obst ructed by the previous noted stone which is unable to distinguish from the excreted contrast. Subsequ ent images demonstrate a catheter advanced into the right ureter with a wire advanced catheter into a n upper pole calyx of the right kidney. Final images demonstrate placement of a right internal ureter al stent with proximal loop formed in the right renal pelvis. The stone is not visualized and may hav e been extracted. The prior right hydronephrosis is resolved. IMPRESSION: 1. Right internal ureteral stent placement in expected position with resolution of prior mild right h ydronephrosis. The previously seen obstructing proximal right ureteral stone is not visualized and ma y been extracted. Correlate with procedure note for further detail. Reviewed, dictated and finalized at location A. IMPRESSION: 1. Right internal ureteral stent placement in expected position with resolution of prior mild right hydronephrosis. The previously seen obstructing proximal r ight ureteral stone is not visualized and may been extracted. Correlate with pr ocedure note for further detail.
--- NOTE | ~2024-06-27 | CT_ITS ---
CT abdomen pelvis w con Ordering provider: Gena Sauer PA-C History: 59 years Male with . RLQ pain, radiating to R lower back . Comparison: January 08, 2023 Technique: CT abdomen and pelvis with IV and without oral contrast. Automated exposure control and it erative reconstruction technique were employed. The dose-length product was 687.87 mGy-cm. 100 mL Omn ipaque 350 was given IV. Findings: VISUALIZED LOWER CHEST: Normal. UPPER ABDOMINAL ORGANS: Liver: Fat infiltration. Gallbladder: Soft tissue density which may be a polyp. Ultrasound confirmation advised. Spleen: Normal. Stomach/duodenum: Normal. Pancreas: Normal. Adrenals: Normal. Kidneys: Tiny cysts in the left kidney lower and upper poles. Cyst seen in the right kidney upper pole measuring 4.8 cm. Minimal fullness of the right renal pelvis is seen with a stone seen in the right upper ureter measuring 5 mm. Tiny cyst seen in the right kidn ey midpole. PELVIC ORGANS: The bladder is normal. Enlarged prostate BOWEL AND MESENTERY: Colon: No evidence of diverticulitis. Normal appendix. Small Bowel: Normal. No obstruction. Peritoneum/mesentery: No free air or free fluid. No mesenteric lymphadenopathy. RETROPERITONEUM: Normal aorta. No retroperitoneal lymphadenopathy. MUSCULOSKELETAL: Superficial soft tissues: Bilateral fat containing inguinal hernias. Otherwise, The superficial soft tissues are normal. Bones: Age appropriate degenerative changes of the spine. Bilateral sacroiliitis with fusion the righ t side. IMPRESSION: 1. Stone in the right upper ureter with mild hydronephrotic changes. 2. No evidence of diverticulitis, appendicitis or intestinal obstruction. 3. Bilateral renal cysts. 4. Fat infiltration of the liver. 5. Possible polyp in the gallbladder. Ultrasound evaluation advised Reviewed, dictated and finalized at location A.
--- NOTE | 2024-06-27 09:45 | ED.ABDPAIN ---
HPI - Abdominal Pain General Chief Complaint: Back Pain/Injury Stated Complaint: right lower back pain Time Seen by Provider: 06/27/24 09:28 Source: patient Mode of arrival: ambulatory Limitations: no limitations History of Present Illness HPI narrative: patient is a 59-year-old male who presents the ED with report of right lower abdominal pain. Patient reports pain began approximately 1 hour prior to arrival while he was at work. Has been constant since the pain began, with intermittent waves of more severe pain. Radiates around to his right lower back. He has not take anything for pain. He did report nausea when the pain 1st began, denies vomiting. Denies diarrhea or constipation. Last bowel movement was yesterday. Denies fevers. Has history of kidney stones, but states current pain does not feel similar. Related Data Home Medications Medication Instructions Recorded Confirmed aspirin 81 mg capsule 81 mg PO DAILY 01/08/23 06/27/24 loratadine 10 mg tablet (Claritin) 10 mg PO DAILY 01/08/23 06/27/24 sennosides 25 mg tablet 25 mg PO DAILY PRN Constipation 01/08/23 06/27/24 vitamin B complex 1 tablet PO DAILY 01/08/23 06/27/24 omega-3 fatty acids 150 mg-fish 1 cap PO DAILY 07/16/23 06/27/24 oil 400 mg capsule (Fish Oil Pearls) Allergies Allergy/AdvReac Type Severity Reaction Status Date / Time prochlorperazine AdvReac Agitated Verified 06/27/24 14:24 [From Compazine] Review of Systems Review of Systems: All systems reviewed & are unremarkable except as noted in HPI. All systems reviewed & are unremarkable except as noted in HPI and below PMFSH Social History Social History Smoking status: Never smoker Alcohol intake: never Substance use: never Substance use type: does not use Living arrangements: with family Spiritual care concerns: No Exam Narrative: GENERAL: Well appearing, well-nourished, non-toxic, in mild acute distress d/t pain. HEAD: Normocephalic, atraumatic. RESPIRATORY: Airway patent, respirations nonlabored. Clear to auscultation bilaterally, no rales, rhonchi, wheezing. CARDIOVASCULAR: Regular rate and rhythm without murmurs, rubs, or gallops. ABDOMINAL: Soft, TTP in R mid and lower quadrants. +CVA tenderness. Nondistended. Normoactive BS. MUSCULOSKELETAL: Moves all extremities. No gross deformities. SKIN: Warm, dry, normal color. NEURO: A&O X3. Speech clear. PSYCHIATRIC: Appropriate mood and affect. Normal interaction. Course Vital Signs Vital signs: Vital Signs Pulse Rate 70 06/27/24 09:30 Respiratory Rate 18 06/27/24 09:30 Blood Pressure 116/72 06/27/24 09:30 Pulse Oximetry 100 06/27/24 09:30 Temperature 98.6 F 06/27/24 14:15 Pulse Rate 92 06/27/24 14:15 Respiratory Rate 14 06/27/24 14:15 Blood Pressure 148/71 H 06/27/24 14:15 Pulse Oximetry 97 06/27/24 14:15 Oxygen Delivery Room Air 06/27/24 14:15 MDM - Abdominal Pain MDM Narrative Medical decision making narrative: Patient presented to ED with right lower abdominal pain, radiating to his right lower back. Vital signs are stable upon arrival. Mildly uncomfortable appearing. Laboratory studies are reassuring. No leukocytosis. Stable kidney function. Sodium slightly low at 130. Fluids ongoing. Normal LFTs and lipase. Urine with large amount of RBC, suspicious for kidney stone. CT scan of abdomen/ pelvis obtained and showing 5 mm right proximal stone. Consistent with clinical picture. KUB obtained. Patient was updated on lab and imaging findings. He was given 2 doses of morphine in the ED with improvement of pain. He was resting more comfortably on my re-evaluation. Initial plan was for patient to go home with pain/nausea medicine, close outpatient urology follow-up. Patient now reporting worsening pain, does not feel comfortable going home. Will re-discuss with Urology. I discusse
[2024-06-27] MEDS: MORPHINE SULFATE (*CRX) 4 MG/ML INJ IV PUSH ×2 (09:57→11:38)
[2024-06-27] MEDS: ONDANSETRON INJ 4 MG/2 ML VIAL IV PUSH (09:57)
[2024-06-27] MEDS: SODIUM CHLORIDE 0.9% IV 1,000 ML 999 ML IV CONT (10:10)
[2024-06-27 10:24] LABS: Basophils Absolute Auto 0.1 K/mm3 (0.0-0.1); Basophils Percent Auto 0.8 % (0.2-1.2); Eosinophils Absolute Auto 0.2 K/mm3 (0-0.3); Eosinophils Percent Auto 1.9 % (0-4.4); Hematocrit 46.2 % (42.0-52.0); Hemoglobin 15.9 g/dL (14.0-18.0); Immature Granulocyte Absolute 0.04 K/mm3 (0.00-0.031); Immature Granulocyte Percent A 0.5 % (0-0.5); Lymphocytes Absolute Auto 1.78 K/mm3 (0.9-3.2); Lymphocytes Percent Auto 23.1 % (18.3-44.2); Mean Corpuscular HGB Conc 34.4 g/dl (32-36); Mean Corpuscular Hemoglobin 29.7 pg (26-34); Mean Corpuscular Volume 86.2 fl (80-100); Mean Platelet Volume 10.5 fl (7.4-10.4); Monocytes Absolute Auto 0.5 K/mm3 (0.1-0.6); Monocytes Percent Auto 6.5 % (2.6-8.5); Neutrophils Absolute Auto 5.2 K/mm3 (1.3-6.7); Neutrophils Percent Auto 67.2 % (45.5-73.1); Platelet Count Result 177 k/mm3 (150-375); Red Blood Count 5.36 M/mm3 (4.6-6.20); Red Cell Distribution Width 13.2 % (11.5-14.5); White Blood Count 7.7 K/mm3 (4.5-10.0)
[2024-06-27 10:35] LABS: Alanine Aminotransferase 53 U/L (6-50); Albumin Level 4.4 g/dL (3.5-5.1); Alkaline Phosphatase 44 U/L (38-126); Anion Gap 8 mmol/L (4-12); Aspartate Amino Transferase 53 U/L (17-59); Blood Urea Nitrogen 24 mg/dL (9-20); Calcium 8.8 mg/dL (8.4-10.2); Carbon Dioxide 28 mmol/L (22-30); Chloride 94 mmol/L (98-107); Estimated Glomerular Filt Rate > 60; Glucose 129 mg/dL (65-110); Lipase 165 U/L (23-300); Potassium 4.1 mmol/L (3.4-5.0); Sodium 130 mmol/L (137-145)
[2024-06-27 10:39] LABS: Add Urine Microscopic? YES; Appearance Urine Clear (Clear); Bacteria Urine None Seen /hpf; Bilirubin Urine 1+ (Negative); Blood Urine 3+ (Negative); Color Urine Dark Yellow (Yellow); Glucose Urine UA Negative (Negative); Ketones Urine Trace mg/dL (Negative); Leukocyte Esterase Ur Negative LEU/UL (Negative); Nitrate Urine Negative (Negative); Non Pathogenic Casts 0-2; Protein Urine Trace mg/dL (Negative); RBC Urine >100 /hpf (0-2); Specific Grav Ur 1.031 (1.001-1.035); Squamous Epithelial Cell Urine None Seen /hpf (Few); Urobilinogen Urine 0.2 mg/dL (<2.0); WBC Urine 0-5 /hpf (0-3); pH Urine 5.5 (5.0-9.0)
[2024-06-27] MEDS: TAMSULOSIN HCL 0.4 MG CAPSULE PO (11:38)
--- NOTE | 2024-06-27 13:52 | WPDURCON ---
Assessment and Plan Assessment and plan (1) Right ureteral stone: Code(s): N20.1 - Calculus of ureter Status: Acute Assessment and Plan: 5 mm proximal right ureteral stone. Given persistent pain, will proceed with cystoscopy, right ureteroscopy, possible right stone extraction, possible holmium laser lithotripsy, and right ureteral stent placement this afternoon with Dr. Joseph. Discussed details of procedure with patient and he is agreeable to proceed. Continue NPO diet. Urology Consult Note HPI Date Seen: 06/27/24 Requesting Physician: Alejo Joseph MD Primary Care Provider: Chad Cavanaugh, Consult Narrative Narrative: Omer Ely is a 59 year old male with a history of prior kidney stones who is being seen in consultation for right ureteral stone. Patient reports this morning around 8:30 a.m. he had sudden onset of right flank and back pain. He had associated nausea. Denies dysuria or hematuria. No vomiting. No fevers or chills. He presented to the ER this morning with these symptoms. On arrival, his vital signs were stable and he was afebrile. WBC was within normal limits at 7.7, creatinine stable 1.1. UA with 3+ blood, no leukocytes or nitrates. A CT of his abdomen/pelvis was completed which demonstrated a 5 mm right proximal ureter stone with minimal fullness of the right renal pelvis. At the time of my evaluation, the patient reports persistent right flank pain rated 7/10. He remains quite uncomfortable despite analgesics. He has not had anything to eat or drink today he reports taking 81 mg aspirin daily, last dose was yesterday evening. He continues to void without difficulty. Review of Systems Review of Systems: All systems reviewed & are unremarkable except as noted in HPI and below [facility] Social History Social History Smoking status: Never smoker Alcohol intake: never Substance use: never Substance use type: does not use Living arrangements: with family Spiritual care concerns: No Meds Home Medications and Allergies Home Medications Medication Instructions Recorded Confirmed Type aspirin 81 mg capsule 81 mg PO DAILY 01/08/23 07/22/23 History loratadine 10 mg tablet (Claritin) 10 mg PO DAILY 01/08/23 07/22/23 History sennosides 25 mg tablet 25 mg PO DAILY PRN Constipation 01/08/23 07/22/23 History vitamin B complex 1 tablet PO DAILY 01/08/23 07/22/23 History omega-3 fatty acids 150 mg-fish 1 cap PO DAILY 07/16/23 07/22/23 History oil 400 mg capsule (Fish Oil Pearls) Allergies Allergy/AdvReac Type Severity Reaction Status Date / Time prochlorperazine AdvReac Agitated Verified 06/27/24 10:16 [From Compazine] Vital Signs Vital Signs - 24 hr 06/27/24 10:00 06/27/24 09:30 06/27/24 10:55 Temperature 97.4 F L Pulse Rate 87 70 88 Respiratory Rate 16 18 16 Blood Pressure 136/73 116/72 136/73 Pulse Oximetry 98 100 98 06/27/24 13:51 Temperature 98.1 F Pulse Rate 80 Respiratory Rate 14 Blood Pressure 116/70 Pulse Oximetry 100 Exam Narrative: General: Awake, alert, comfortable, no acute distress HEENT: Normocephalic, atraumatic, sclerae anicteric Respiratory: Normal respiratory effort, no accessory muscle use Abdomen: Nondistended, soft, nontender Skin: Normal coloration, warm and dry Neurologic: No focal neuro deficits noted Psychiatric: Appropriate mood and affect, judgment and insight intact Results Labs 06/27/24 10:04 06/27/24 10:04 Labs: Short CBC 06/27/24 Range/Units 10:04 WBC 7.7 (4.5-10.0) K/mm3 Hgb 15.9 (14.0-18.0) g/dL Hct 46.2 (42.0-52.0) % Plt Count 177 (150-375) k/mm3 BMP 06/27/24 06/27/24 06/27/24 10:04 10:04 10:04 Sodium Cancelled 130 L Potassium Cancelled 4.1 Chloride Cancelled Carbon Dioxide BUN Creatinine Glucose Calcium
--- NOTE | 2024-06-27 13:55 | WPDHPUPDATE1 ---
History and Physical Update Update Date/Time: 06/27/24 13:55 History and Physical has been reviewed, including an updated exam of the patient. There are NO changes in the patient's condition. Risks, benefits, and alternatives have been discussed and questions answered. Patient agrees to proceed with procedure. Proceed with cystoscopy, right retrograde pyelogram, right ureteroscopy with stone extraction, possible laser stent placement
--- NOTE | 2024-06-27 14:16 | WPDANESEPPF ---
Anes - Initial Pre Proc Eval Procedure: Operation Date: 06/27/24 14:45 Proposed Procedures p Cystoscopy,Right Retrograde Pyelogram,Right Ureteroscopy,Right Stone Extraction ,Stent Placement.Possible Holmium Laser - Alejo Joseph MD Date/Time: 06/27/24 14:16 Surgeon: Alejo Joseph MD Pre Op Diagnosis: right lower back pain Patient Data Age: 59 Gender: M Height: Weight: Last Vital Signs Temp 98.1 F 06/27/24 13:51 Pulse 80 06/27/24 13:51 Resp 14 06/27/24 13:51 BP 116/70 06/27/24 13:51 Pulse Ox 100 06/27/24 13:51 Allergies Allergy/AdvReac Type Severity Reaction Status Date / Time prochlorperazine AdvReac Agitated Verified 06/27/24 10:16 [From Compazine] Home Medications Medication Instructions Recorded Confirmed Type aspirin 81 mg capsule 81 mg PO DAILY 01/08/23 07/22/23 History loratadine 10 mg tablet (Claritin) 10 mg PO DAILY 01/08/23 07/22/23 History sennosides 25 mg tablet 25 mg PO DAILY PRN Constipation 01/08/23 07/22/23 History vitamin B complex 1 tablet PO DAILY 01/08/23 07/22/23 History omega-3 fatty acids 150 mg-fish 1 cap PO DAILY 07/16/23 07/22/23 History oil 400 mg capsule (Fish Oil Pearls) Laboratory Tests 06/27/24 06/27/24 06/27/24 10:04 10:04 10:04 WBC 7.7 K/mm3 (4.5-10.0) RBC 5.36 M/mm3 (4.6-6.20) Hgb 15.9 g/dL (14.0-18.0) Hct 46.2 % (42.0-52.0) MCV 86.2 fl (80-100) MCH 29.7 pg (26-34) MCHC 34.4 g/dl (32-36) RDW 13.2 % (11.5-14.5) Plt Count 177 k/mm3 (150-375) MPV 10.5 H fl (7.4-10.4) Immature Gran % (Auto) 0.5 % (0-0.5) Neut % (Auto) 67.2 % (45.5-73.1) Lymph % (Auto) 23.1 % (18.3-44.2) [place] % (Auto) 6.5 % (2.6-8.5) Eos % (Auto) 1.9 % (0-4.4) Baso % (Auto) 0.8 % (0.2-1.2) Lymph # (Auto) 1.78 K/mm3 (0.9-3.2) [place] # (Auto) 0.5 K/mm3 (0.1-0.6) Eos # (Auto) 0.2 K/mm3 (0-0.3) Baso # (Auto) 0.1 K/mm3 (0.0-0.1) Abs Immat Gran (auto) 0.04 H K/mm3 (0.00-0.031) Absolute Neuts (auto) 5.2 K/mm3 (1.3-6.7) Absolute Nucleated RBC 0.000 K/mm3 (0.0-0.012) Nucleated RBC % 0.0 % (0.0-0.2) Sodium Cancelled 130 L mmol/L (137-145) Potassium Cancelled 4.1 mmol/L (3.4-5.0) Chloride Cancelled Carbon Dioxide Anion Gap BUN Creatinine Estim Creat Clear Calc Estimated GFR Glucose Calcium Total Bilirubin AST ALT Alkaline Phosphatase Total Protein Albumin Lipase Urine Color Urine Appearance Urine pH Ur Specific [place] Urine Protein Urine Glucose (UA) Urine Ketones Ur Blood (Man) Urine Nitrate Urine Bilirubin Urine Urobilinogen Leukocyte Esterase Rfl Urine RBC Urine WBC Ur Squamous Epith Cells Urine Bacteria Urine Casts 06/27/24 06/27/24 06/27/24 10:04 10:04 10:04 WBC RBC Hgb Hct MCV MCH MCHC RDW Plt Count MPV Immature Gran % (Auto) Neut % (Auto) Lymph % (Auto) [place] % (Auto) Eos % (Auto) Baso % (Auto) Lymph # (Auto) [place] # (Auto) Eos # (Auto) Baso # (Auto) Abs Immat Gran (auto) Absolute Neuts (auto) Absolute Nucleated RBC Nucleated RBC % Sodium
[2024-06-27] MEDS: LACTATED RINGERS 1,000 ML 30 ML IV CONT (14:23)
[2024-06-27] MEDS: ceFAZolin 2 GM/D5W 50 ML 2 GM/50 ML BAG IVPB (14:24)
[2024-06-27] MEDS: LIDOCAINE HCL 2% GEL UROJET 10 ML PKG MUCOUS MEM (14:39)
--- NOTE | 2024-06-27 15:10 | W.PM.PROC2 ---
Procedure Note - Detailed Date of Procedure 06/27/24 Pre-op Diagnosis Right ureteral calculus Post-op Diagnosis Same (Right ureterocele) Procedure Performed Cystoscopy, right retrograde pyelogram, right ureteroscopy with laser, stent placement 4.8 Ethiopian contour, fulguration prostatic fossa, Arriola catheter placement Surgeon Alejo Joseph MD Anesthesia General Findings Small right ureterocele, Description of Procedure Patient was taken to the operative suite correctly identified. Once anesthesia was obtained he was placed in dorsal lithotomy position and prepped and draped usual sterile fashion. Twenty-two Ethiopian scope was inserted the bladder. There were no tumors noted. The right ureteral orifice was visualized however he has what appears to be a small ureterocele. We were able to manipulate a wire into this area. We then dilated with an 810 dilator. Ureteral access sheath was then placed. Mini flexible ureteral scope was inserted. Patient had a very tight proximal ureter. We placed a 2nd wire to advance the scope in with this the stone was flushed back into the kidney. It was located in the middle pole calyx. Using 200 micron fiber I dusted the stone. There were no fragments large enough to retrieve. Pyelogram then was performed to confirm placement of the stent. 4.8 Ethiopian contour stent was placed with the proximal end coiled in the renal pelvis and the distal in the bladder. Bladder was drained. At this point it was noted that the prostatic fossa wanted to ooze. Using a Bugbee electrode we fulgurated the vessels that we saw bleeding. Eighteen Ethiopian 3 was then placed and connected to continuous bladder irrigation after 2% viscous lidocaine was inserted. He is taken recovery stable condition. He will be discharged home with a Arriola catheter overnight. can be instructed for its removal if his urine is clear in the morning. Will remove the stent in a week's time. This completes dictation. Please send a copy of op note to my office. Estimated Blood Loss 10 Drains Yes Packing No Pathology None sent Complications No immediate complications Condition Stable Disposition PACU
[2024-06-27] MEDS: fentaNYL CITRATE INJ (*CRX) 100 MCG/2 ML VIAL 25 MCG IV PUSH ×4 (15:50→16:00)
[2024-06-27] MEDS: oxyCODONE HCL (*CRX) 5 MG TAB IR PO (16:31)
== END 2024-06-27 17:00 | disposition home or self-care (01) ==
LOC: ANHED 13:36 → ANHSURGERY 13:42
PROVIDERS: Emergency Provider Physician Assistant; PCP Internal Medicine; Visit Provider Urology
PROC: (CPT 52352; principal; 2024-06-27 14:45)
DX: N13.2 Hydronephrosis with renal and ureteral calculous obstruction (principal); N28.89 Other specified disorders of kidney and ureter; Z79.82 Long term (current) use of aspirin
CPT/HCPCS: 52356; 52214; 36415; 74018; 74177; 74420; 80053; 81001; 83690; 85025; 96361; 96374; 96375; 96376; 99285; A9270; C1769; C1894; C2617; J0690; J1100; J2250; J2270; J2405; J2704; J3010; J7030; J7120; Q9966; Q9967

== ENCOUNTER 2024-08-01 14:05 | Outpatient (CLI) | payer OTHER, SELFPAY ==
--- NOTE | ~2024-08-01 | XR_ITS ---
EXAMINATION: XR abdomen/kub 1V DATE: 08/01/2024 14:31 INDICATION: Right kidney stone. TECHNIQUE: A supine view of the abdomen on 2 radiographs was obtained. COMPARISON: CT abdomen and pelvis 06/27/2024, abdomen radiographs 06/27/2024 FINDINGS: There are no dilated loops of bowel. There are phleboliths in left pelvis. IMPRESSION: 1. No visible urolithiasis. Reviewed, dictated and finalized at location B. IMPRESSION: 1. No visible urolithiasis.
== END 2024-08-01 14:06 | disposition home or self-care (01) ==
PROVIDERS: PCP Internal Medicine; Visit Provider Urology
DX: N20.1 Calculus of ureter (principal)
CPT/HCPCS: 74018